=== PATIENT | female | born 1975 | race Caucasian/White ===

== ENCOUNTER 2016-10-08 19:57 | Emergency (ER) | payer OTHER ==
[2016-10-08] MEDS ORDERED: DIPHTH,PERTUSS(ACELL),TET VAC 0.5 ML VIAL IM V ONE (20:58)
== END 2016-10-08 21:12 | disposition home or self-care (01) ==
LOC: ED 19:57
DX: S80.871A Other superficial bite, right lower leg, initial encounter (principal); Z23 Encounter for immunization; W50.3XXA Accidental bite by another person, initial encounter; Y93.F9 Activity, other caregiving; Y92.9 Unspecified place or not applicable; Y99.0 Civilian activity done for income or pay